=== PATIENT | male | born 2000 | race Caucasian/White ===

== ENCOUNTER 2022-06-16 11:46 | Emergency (ER) | payer OTHER ==
[~2022-06-16] VITALS: Ht 177.8 cm; Wt 75.9 kg
[2022-06-16 11:46] VITALS: BP 133/58
[2022-06-16] MEDS ORDERED: ACET-910 PO (12:11)
[2022-06-16] MEDS ORDERED: IBUP200T46 PO (12:11)
== END 2022-06-16 14:31 | disposition home or self-care (01) ==
LOC: M ED 11:46
DX: S01.01XA Laceration without foreign body of scalp, initial encounter (principal); W22.8XXA Striking against or struck by other objects, initial encounter; Y99.1 Military activity

== ENCOUNTER 2022-06-24 18:37 | Emergency (ER) | payer OTHER ==
[~2022-06-24] VITALS: Ht 175.3 cm; Wt 74.5 kg
[~2022-06-24 18:37] MED LIST: ACET-910 PO; IBUP200T46 PO
[2022-06-24 22:51] VITALS: BP 119/62
== END 2022-06-24 22:53 | disposition home or self-care (01) ==
LOC: M ED 18:37
DX: S23.3XXA Sprain of ligaments of thoracic spine, initial encounter (principal); W22.8XXA Striking against or struck by other objects, initial encounter